=== PATIENT | male | born 1975 | race Caucasian/White ===

== ENCOUNTER 2021-07-18 23:38 | Observation (INO) | payer OTHER ==
[~2021-07-18] VITALS: Ht 162.6 cm; Wt 81.6 kg
[2021-07-19 00:10] LABS: HEMOGLOBIN 16.4 gm/dl (14.0-17.5); RED BLOOD COUNT 4.67 M/UL (4.20-5.50); WHITE BLOOD COUNT 28.4 K/UL (4.5-11.0)
[2021-07-19 00:24] LABS: BUN/CREATININE RATIO 31 (0-10)
[2021-07-19] MEDS ORDERED: CYCLOBENZAPRINE10 MG PO (11:26)
[2021-07-19] MEDS ORDERED: HYDROCODON-ACE1 EAC2 PO (11:26)
--- NOTE | 2021-07-19 14:29 | NUR ---
Patient had 150 ml urine output after cardenas catheter d/c. Patient has no trouble voiding.
== END 2021-07-19 14:50 | disposition home or self-care (01) ==
LOC: ER1 23:38 → M/S 07-19 02:04 → CDU 07-19 02:04 → M/S 07-19 06:21
PROVIDERS: Emergency Medicine; ADMIT Surgery
DX: S27.0XXA Traumatic pneumothorax, initial encounter (principal); S22.41XA Multiple fractures of ribs, right side, initial encounter for closed fracture; Z20.822 Contact with and (suspected) exposure to COVID-19; V86.99XA Unspecified occupant of other special all-terrain or other off-road motor vehicle injured in nontraffic accident, initial encounter; Z88.0 Allergy status to penicillin
CPT/HCPCS: 36600; 51702; 70450; 71045; 71260; 72125; 72128; 72131; 80053; 80307; 81001; 82803; 83605; 85025; 85610; 85730; 86850; 86900; 86901; 96374; 96375; 96376; 99285; G0378; G0480; J1170; J2270; J2405; Q9967; U0002